=== PATIENT | male | born 1955 | race Caucasian/White ===

== ENCOUNTER 2024-12-25 13:39 | Outpatient (REF) | payer OTHER, SELFPAY ==
--- NOTE | ~2024-12-25 | US_ITS ---
EXAMINATION: BILATERAL CAROTID ULTRASOUND WITH DOPPLER HISTORY: CMD COMPARISON: There are no prior studies available for comparison. TECHNIQUE: Real time and Color and Spectral doppler ultrasonography of the carotid and vertebral arteries was performed in multiple planes. FINDINGS: Small amount of plaque is seen in both internal carotid arteries. VERTEBRAL FLOW DIRECTION: Antegrade bilaterally. PEAK SYSTOLIC VELOCITIES (in cm/sec): RIGHT: CCA: Prox: 97.4 Dist: 97.4 ICA: Prox: 84.4 Mid: 91.9 Dist: 94.3 ICA/CCA Ratio: 0.97 ECA: 114 Peak ICA end diastolic velocity (EDV): 28.3 LEFT: CCA: Prox: 117 Dist: 101 ICA: Prox: 75.6 Mid: 76.2 Dist: 88.0 ICA/CCA Ratio: 0.75 ECA: 83.3 Peak ICA end diastolic velocity (EDV): 26.7 US/US carotid duplex BI IMPRESSION: Findings consistent with 0-49% stenosis of the bilateral internal carotid arteries. Electronically signed by: Aly Barahona MD 12/25/2024 02:37 PM EDT
--- OUTSIDE RECORDS SUMMARY | 2024-12-25 15:09 | XMS_ITS | Clinical Summary ---
Author Organization [address] [place] [address] Address [address] [place] [address] Phone Care Team Providers Care Power Shovel Operator Name Role Phone Gaurav Mcgill MD Primary Care Provider [phone] Allergies Active Allergy Reactions Criticality Noted Date Comments Iodinated Contrast Media Other High 09/06/2007 Tightness throat Medications aspirin (Vazalore) 81 mg capsule Take 81 mg by mouth. Active latanoprost (XALATAN) 0.005 % ophthalmic solution 1 drop. Active dorzolamide-timol oL (COSOPT) 22.3-6.8 mg/mL ophthalmic solution 1 drop. 5 Active medical supply, miscellaneous (MISCELLANEOUS MEDICAL SUPPLY MISC) CPAP HISTORICAL (HISTORICAL CPAP) Inhale into the lungs. footit-pressur e 6-14 - Inhalation Active amLODIPine (NORVASC) 5 mg tablet Take 1 tablet (5 mg total) by mouth 1 (one) time each day. 90 tablet 3 5 Active losartan (COZAAR) 100 mg tablet Take 1 tablet (100 mg total) by mouth 1 (one) time each day. 90 tablet 3 5 Active rosuvastatin (CRESTOR) 40 mg tablet Take 1 tablet (40 mg total) by mouth 1 (one) time each day. 90 tablet 3 5 Active Active Problems Problem Noted Date Diagnosed Date Type 2 diabetes mellitus wit h hyperglycemia, without long-term current use of insulin ([facility] V24, [facility] V28) 09/04/2024 Infrarenal abdominal aortic aneurysm (AAA) without rupture ([facility] V24) 11/09/2023 Coronary artery calcification seen on CAT scan 0 08/21/2022 Assessment & Plan (09/01/2024 9:57 AM EST): He followed up with cardiology. Denies any anginal symptoms. Continue aspirin, rosuvastatin. He informs me he is taking his aspirin every other day. He will monitor for easy bruising which bothers him. Assessment & Plan (08/10/2024 12:13 PM EST): Patient has a history of coronary artery calcification seen on CT scan. He is not having any signs or symptoms of coronary insufficiency at this time. Did have a discussion with patient regarding resuming aspirin for prevention of cardiac event. At this time patient is willing to resume aspirin every other day and assess for significant bruising. He also continues on rosuvastatin, and has been tolerating this well. Patient is aware if he should develop any worsening shortness of breath with exertion or chest discomfort with or without exertion that he will contact his provider, at which point we may consider stress testing. He is also aware for any symptoms lasting longer than 10 to 15 minutes he should seek immediate medical attention. Orders: ECG 12 lead Ascending aortic aneurysm ([facility] V24) 12/31/19 21 Overview (03/14/2024): 2022: 3.3x3.7 on US 02/25/22 U/S - 3.1cm diameter small AAA 08/2021 3.4 CM 4 cm on LDLCT 2020 Hypertension 09/24/2020 Assessment & Plan (09/01/2024 9:57 AM EST): Follow low-sodium diet. Continue regimen of amlodipine, losartan. Assessment & Plan (08/10/2024 12:13 PM EST): Patient has a history of hypertension. Blood pressure is well-controlled at the visit today. Patient will continue with amlodipine and losartan as prescribed. Obstructive sleep apnea 04/06/2016 Glaucoma 08/17/2014 Colon polyp 08/12/2010 Overview (03/14/2024): Colon polyps, adenomas, 2007. 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 Hyperlipidemia 12/08/2006 Assessment & Plan (09/01/2024 9:57 AM EST): Follow low-cholesterol diet. Continue rosuvastatin. Assessment & Plan (08/10/2024 12:13 PM EST): Patient has a history of hyperlipidemia on rosuvastatin. Most recent lipid panel reviewed and under acceptable control. He will continue medications as prescribed. He is encouraged to increase exercise, make efforts to lose weight and follow a low fat, heart healthy diet. Encounters Date Type Department Care Team Description 12/20/2024 [facility]phone [facility] [address] [place] [phone] Susanne Forbes MA Medicare Annual Wellness Visit Subsequent (PE DUE after 11/08/2024) 12/19/2024 10:40 AM EDT Consult [facility] [address] [place] [address] Sophia Espitia MD Small vessel disease (CMS/HCC V24) (Primary Dx); Skinner's palsy; Hypertension, unspecified type; Obstructive sleep apnea 12/04/2024 Telephone Internal [facility] - [facility] [address] [place] [address] Gaurav Mcgill MD Referral from Last 3 Months Immunizations Name Administration Dates Next Due Influenza Quadravalent, MDCK , 0.5ml, preservative free (Flucelvax) 6mo and older 04/05/2018 Influenza Quadravalent, MDCK , 0.5ml, with preservative (Flucelvax) 6mo and older 03/23/2017 Influenza trivalent, with preservative (Fluzone; Afluria) 6mo and older 03/26/2020,03/20/2016,04/02/2015,2013,04/07/2013,04/12/2012,05/26/2010,0 03/29/2009 Influenza, Unspecified 04/06/2022,04/13/2019 Moderna SARS-CoV-2 COVID-19, mRNA, LNP-S, preservative free 09/16/2020,08/19/2020 Pneumococcal conjugate 20 va lent (Prevnar 20, PCV 20) 2mo and older 05/01/2022 Td Tetanus diptheria (Tdvax) 7yo and older 03/16/2017 Tdap Tetanus diptheria acell ular pertussis (Boostrix; Adacel) 7yo and older 12/08/2006 Zoster Live 03/16/2017 Zoster recombinant (Shingrix ) 19yo and older 10/21/2020,06/17/2020 Surgical History Surgery Date Site/Laterality Comments MULTIPLE TOOTH EXTRACTIONS childhood PROCEDURE: HISTORICAL DENTAL EXTRACTION; COMMENT: extra tooth removed from palate OTHER SURGICAL HISTORY age 22 PROCEDURE: CT PNEUMOTHORAX THER INTRAPLEURAL INJECTION AIR; COMMENT: right thoracotomy OTHER SURGICAL HISTORY 04/2008 PROCEDURE: HISTORICAL CA BASAL CELL; COMMENT: BCC 04/11 left nasolabial fold (nodular type .. Dr Roisna Castle) COLONOSCOPY 09/06/07 PROCEDURE: HISTORICAL COLONOSCOPY; COMMENT: adenomas. Repeat in three years COLONOSCOPY 11/14/10 PROCEDURE: CT COLONOSCOPY STOMA DX INCLUDING COLLJ SPEC SPX; COMMENT: normal; repeat in five years COLONOSCOPY 12/11/15 PROCEDURE: HISTORICAL COLONOSCOPY; COMMENT: tics; repeat in 10 yrs Medical History Medical History Date Comments Calculus of kidney DX:Calculus o f kidney; COMMENT: recurrent, passed spontaneously Other and unspecified hyperlipidemia DX:Other and unspecified hyperlipidemia History of actinic keratoses 04/07/2006 DX: History of actinic keratoses History of basal cell carcinoma DX:History of basal cell carcinoma; COMMENT: BCC 04/11 left nasolabial fold (nodular type .. Dr Rosina Castle) Ascending aortic aneurysm ([facility] V24) 12/30/2020 DX:Ascending aortic aneurysm (HCC) Abdominal aortic aneurysm (A AA) 3.0 cm to 5.5 cm in diameter in male ([facility] V24) 08/21/2022 DX:Abdominal aortic aneurysm (AAA) 3.0 cm to 5.5 cm in diameter in male (HCC) Coronary artery calcificatio n seen on CAT scan 08/21/2022 DX:Coronary artery calcifica tion seen on CAT scan Essential hypertension DX:Essent ial hypertension Tobacco use disorder DX:Tobacco use disorder History of diverticulitis 12/02/2022 DX:His tory of diverticulitis Type 2 diabetes mellitus wit h hyperglycemia, without long-term current use of insulin ([facility] V24, [facility] V28) 09/04/2024 Family History Medical History Relation Name Comments CABG Father 86 Prostate cancer Father 86 Diabetes Mother 87 Other: rheum f Sister 1 No Known Problems Sister 2 Relation Name Status Comments Father 86 [place] age 60s, pro state [place] Mother 87 Alive Diabetes, obesi ty Sister 1 Alive x2, healthy Sister 2 Alive Social History Tobacco Use Types Packs/Day Years Used Date Smoking Tobacco: Former Cigarettes Q uit: 09/01/2007 Smokeless Tobacco: Never Alcohol Use Standard Drinks/Week Comments Yes 0 (1 standard drink = 0.6 oz pur e alcohol) Sex and Gender Information Value Date Recorded Sex Assigned at Male 08/16/2024 11:00 AM EST Legal Sex Male 10:19 PM EST Gender Identity Male 08/16/2024 11:00 AM EST Sexual Orientation Straight 08/16/2024 11 :00 AM EST Obstetrics History Last Filed Vital Signs Vital Sign Reading Time Taken Comments Blood Pressure 116/75 12/19/2024 10:36 AM EDT Pulse 80 12/19/2024 10:36 AM EDT Temperature 36.3 C (97.3 F) 12/19/2024 10:36 AM EDT Respiratory Rate 20 08/16/2024 1:48 PM EST Oxygen Saturation 95% 12/19/2024 10:36 AM EDT Inhaled Oxygen Concentration - - Weight 104 kg (230 lb) 12/19/2024 10:36 AM EDT Height 160 cm (5' 3 ) 12/19/2024 10:36 AM EDT Body Mass Index 40.74 12/19/2024 10:36 AM EDT Plan of Treatment Upcoming Encounters Date Type Department Care Team (Late st Contact Info) Description 01/19/2025 9:45 AM EDT Office Visit Internal Medicine - [address] [phone] Gaurav Mcgill MD [address] [place] [phone] 03/01/2025 8:30 AM EDT Office Visit Internal Medicine - [address] [phone] Gaurav Mcgill MD [address] [place] [phone] 03/08/2025 8:30 AM EDT Ancillary Procedure [facility] - [facility] [address] [facility] [address] [place] [address] 05/25/2025 9:30 AM EST Office Visit Vascular Surgery - [place] [address] [facility] [address] [place] [address] Destinee Galloway PA [address] [facility] [address] [place] [address] 06/19/2025 10:00 AM EST Office Visit [facility] - [place] [address] [facility] [address] [place] [phone] Sophia Espitia MD [address] [facility] [address] [place] [phone] Health Maintenance Due Date Last Done Comments Diabetes: Annual Foot Exam 1966 Diabetes: Annual Retina Eye Exam 1966 RSV Immunization Adult Patients (1 - Risk 60-74 years 1-dose series) 2016 Depression Screening 06/13/2022 Falls Risk Assessment 06/13/2022 Medicare Annual Wellness Visit 06/13/2022 Social Influencers of Health Screening 06/13/2022 COVID-19 Vaccine ( season) 2024 06/20/2021, 09/16/2020, 08/19/2020 Diabetes: Annual Urine Albumin-Creatinine Ratio (uACR) 09/05/2024 Diabetes: Blood Sugar Control Test (HGBA1C) 03/01/2025 09/01/2024, 01/11/2024, 01/11/2024 Diabetes: Annual GFR (Glomerular Filtration Rate) 08/16/2025 08/16/2024, 03/02/2024, 03/02/2024, Additional history exists Hypertension/CHF/CAD Annual BMP Blood Test 08/16/2025 08/16/2024, 03/02/2024, 03/02/2024, Additional history exists Colorectal Cancer Screening: Colonoscopy 12/18/2025 12/18/2020 DTaP,Tdap,and Td Vaccines (3 - Td or Tdap) 03/16/2027 03/16/2017, 12/08/2006 Cholesterol Screening (Lipid Panel) 11/08/2028 11/09/2023, 11/09/2023 Hepatitis C Screening Completed 11/02/2012 Zoster Vaccines Completed 10/21/2020, 06/04, 03/16/2017 Pneumococcal Vaccine: 50+ Years Completed 05/01/2022 Influenza Vaccine Completed 03/13/2024, , 05/01/2022, Additional history exists HIB Vaccines Aged Out No longer eligi ble based on patient's age to complete this topic HPV Vaccines Aged Out No longer eligi ble based on patient's age to complete this topic Hepatitis A Vaccines Aged Out No long er eligible based on patient's age to complete this topic Hepatitis B Vaccines Aged Out No long er eligible based on patient's age to complete this topic IPV Vaccines Aged Out No longer eligi ble based on patient's age to complete this topic MMR Vaccines Aged Out No longer eligi ble based on patient's age to complete this topic Meningococcal ACWY Vaccine Aged Out N o longer eligible based on patient's age to complete this topic Meningococcal B Vaccine Aged Out No l onger eligible based on patient's age to complete this topic RSV Immunization Patients Under 20 months Aged Out No longer eligible based on patient's age to complete this topic Varicella Vaccines Aged Out No longer eligible based on patient's age to complete this topic Procedures Procedure Name Priority Date/Time Associated Diagnosis Comments HEMOGLOBIN A1C Routine 09/01/2024 10:34 AM EST Prediabetes BASIC METABOLIC PANEL STAT 08/16/2024 10:22 AM EST LIPID PANEL Routine 11/09/2023 HM COLONOSCOPY Routine 12/18/2020 HEPATITIS C SCREENING Routine 11/02/2012 from Last 3 Months or Most Recently Relevant to Health Maintenance Results * (ABNORMAL) Hemoglobin A1c (09/01/2024 10:34 AM EST) Pathologist [facility] Hemoglobin A1C 6.6(H) <6.5 % LAB CHEMISTRY METHOD 09/04/2024 9:35 PM EST [facility] Mean Bld Glu Estim. 143 mg/dL LAB CHEMISTRY METHOD 09/04/2024 9:35 PM EST [facility] Blood Venous blood specimen / Unknown Venipuncture / Unknown 09/01/2024 10:34 AM EST 09/01/2024 10:34 AM EST us Gaurav Mcgill MD LAB BLOOD ORDERABLES Roula l Result [facility] [address] [place] [address], * (ABNORMAL) Basic metabolic panel (08/16/2024 10:22 AM EST) Sodium 138 133 - 145 mmol/L LAB CHEMISTRY METHOD 08/16/2024 10:56 AM EST [facility] Potassium 4.0 3.5 - 5.5 mmol/L LAB CHEMISTRY METHOD 08/16/2024 10:56 AM [facility] Chloride 108 96 - 110 mmol/L LAB CHEMISTRY METHOD 08/16/2024 10:56 AM [facility] CO2 26 21 - 32 mmol/L LAB CHEMISTRY METHOD 08/16/2024 10:56 AM [facility] Anion Gap 4 3 - 11 LAB CHEMISTRY METHOD 08/16/2024 10:56 AM [facility] Glucose 161(H) 70 - 100 mg/dL LAB CHEMISTRY METHOD 08/16/2024 10:56 AM [facility] BUN 13 5 - 25 mg/dL LAB CHEMISTRY METHOD 08/16/2024 10:56 AM [facility] Creatinine 0.87 0.70 - 1.30 mg/dL LAB CHEMISTRY METHOD 08/16/2024 10:56 AM [facility] eGFR 95 >=60 mL/min/1. 73m2 LAB CHEMISTRY METHOD 08/16/2024 10:56 AM [facility] Comment:Calculation based on the Chronic Kidney Disease Epidemiology Collaboration (CKD-EPI) equation refit without adjustment for race. BUN/Creatinine Ratio 14.9 LAB CHEMISTRY METHOD 08/16/2024 10:56 AM [facility] Calcium 9.4 8.5 - 10.5 mg/dL LAB CHEMISTRY METHOD 08/16/2024 10:56 AM [facility] Blood Venous blood specimen / Unknown Venipuncture / Unknown 08/16/2024 10:22 AM EST 08/16/2024 10:34 AM EST us Shantanu Starks MD LAB BLOOD ORDERABLES Final Resu lt [facility] [address] [place] [address], * Lipid panel (11/09/2023) LDL/HDL Ratio 3 0 - 4 Triglycerides 126 0 - 150 mg/dL Cholesterol 161 0 - 200 mg/dL HDL 57 >=40 mg/dL LDL Cholesterol 79 0 - 100 mg/dL Blood Venous blood specimen / Unknown Historical Provider LAB BLOOD ORDERABLES Roula l Result * Colonoscopy (12/18/2020) Pathologist [facility] Colonoscopy no interpretation , abstracted Anatomical Region Laterality Modality Other Historical Provider HEALTH MAINTENANCE Final Result * Hepatitis C Screening (11/02/2012) Pathologist [facility] Hepatitis C Screening abstracted Historical Provider HEALTH MAINTENANCE Final Result from Last 3 Months or Most Recently Relevant to Health Maintenance Insurance [employer] MED[employer]ARE Care Teams Power Shovel Operator Relationship Specialty Start Date End Date Gaurav Mcgill MD [address] [place] [phone] PCP - General Internal Medicine 09/19/20
== END 2024-12-25 13:40 | disposition home or self-care (01) ==
LOC: HO.HMGCX 13:39
PROVIDERS: PCP Internal Medicine; Referring Provider Student in an Organized Health Care Education/Training Program; Visit Provider Psychiatry & Neurology Neurology
DX: I67.9 Cerebrovascular disease, unspecified (principal); I65.23 Occlusion and stenosis of bilateral carotid arteries
CPT/HCPCS: 93880

== ENCOUNTER → 2024-12-25 13:48 | Outpatient (BNV) | payer OTHER, SELFPAY | PROVIDERS: PCP Internal Medicine; Referring Provider Student in an Organized Health Care Education/Training Program; Visit Provider Radiology Diagnostic Radiology | DX: I65.23 Occlusion and stenosis of bilateral carotid arteries (principal) | CPT/HCPCS: 93880 ==